=== PATIENT | male | born 1980 | race Caucasian/White ===

== ENCOUNTER 2016-04-29 17:34 | Inpatient (IN) | payer OTHER ==
[~2016-04-29] VITALS: Ht 180.3 cm; Wt 127.4 kg
[~2016-04-29 17:34] MED LIST: ASPI81TA3 PO; BENA20TA48 PO; CARV25TA79 PO; FURO40TA4 PO; OMEG-135 PO; SPIR25TA PO
--- NOTE | 2016-04-29 22:14 | ERA ---
ER Documentation Chief Complaint Date/Time DATE: 04/29/16 TIME: 22:13 Chief Complaint Shortness of breath HPI The patient is a 36-year-old male, presenting to the ER because of acute shortness of breath, bilateral lower extremity swelling, left-sided chest pain, 10/10, nonradiating, no aggravating or relieving factor that began this morning. He denies chest pain with exertion or vomiting or palpitation. He denies abdominal pain, vomiting, dysuria, diarrhea, constipation. He denies smoking, drinks socially, denies illicit drug Past medical history: Hypertension, pulmonary hypertension, history of CHF, cardiomyopathy with low EF of 30%, dyslipidemia Past surgical history: Left knee arthroscopy ROS All systems reviewed and are negative except as per history of present illness. Medications Home Meds Active Scripts Furosemide* (Furosemide*) 40 Mg Tablet, 40 MG PO BID for 30 Days, TAB Prov:LISA STONE NP 08/19/14 Spironolactone* (Aldactone*) 25 Mg Tab, 25 MG PO DAILY, #30 Prov:LISA STONE NP 08/19/14 Reported Medications Nitroglycerin* (Nitrostat*) 0.4 Mg Tab.subl, 0.4 MG SL Q5MIN Y for CHEST PAIN, BOTTLE 04/29/16 Benazepril Hcl* (Benazepril Hcl*) 10 Mg Tablet, 10 MG PO DAILY, #30 TAB 04/29/16 Carvedilol* (Carvedilol*) 25 Mg Tablet, 25 MG PO BID, TAB 08/17/14 Discontinued Reported Medications Benazepril Hcl* (Benazepril Hcl*) 20 Mg Tablet, 20 MG PO DAILY, TAB 08/17/14 Discontinued Scripts Fish Oil* (Fish Oil*) 1,000 Mg Cap, 1000 MG PO BID for 30 Days, CAP Prov:LISA STONE NP 08/19/14 Aspirin (Aspirin) 81 Mg Chew, 81 MG PO DAILY for 30 Days Prov:LISA STONE NP 08/19/14 Allergies Allergies: Coded Allergies: No Known Allergy (Unverified , 04/29/16) PMhx/Soc History of Surgery: Yes (KNEE SX ) Anesthesia Reaction: No Hx Neurological Disorder: No Hx Respiratory Disorders: Yes (PULMONARY HTN) Hx Cardiac Disorders: Yes (HTN; CHF) Hx Psychiatric Problems: No Hx Miscellaneous Medical Probl: No Hx Alcohol Use: Yes (OCCASIONALLY) Hx Substance Use: No (FORMER USE OF METH) Physical Exam Vitals Vital Signs Date Time Temp Pulse Resp B/P Pulse Ox O2 Delivery O2 Flow Rate FiO2 04/30/16 02:07 99.1 73 18 112/63 Nasal Cannula 2.0 04/30/16 00:00 73 18 140/61 Nasal Cannula 2.0 04/29/16 23:12 Nasal Cannula 2 04/29/16 23:00 75 20 116/51 Nasal Cannula 2.0 04/29/16 22:10 98.3 83 20 141/77 Nasal Cannula 2.0 04/29/16 17:38 100.3 88 18 113/70 99 Physical Exam Const: No acute distress. Head: Atraumatic. Eyes: Normal Conjunctiva. ENT: Normal External Ears, Nose and Mouth. Neck: Full range of motion. No meningismus. Resp: Bibasilar crackles Cardio: Regular rate and rhythm, no murmurs. Abd: Soft, non distended, normal bowel sounds, non tender. Skin: No petechiae or rashes. Back: No midline or flank tenderness. Ext: Mild bilateral leg edema, bilateral calf tenderness Neur: Awake and alert. No focal deficit Psych: Normal Mood and Affect. Result Diagram: 04/29/16222904/29/16 2318 Results 24 hrs Laboratory Tests Test 04/29/16 22:30 04/29/16 23:00 04/29/16 23:18 04/29/16 23:25 White Blood Count 17.710^3/ul Red Blood Count 4.8410^6/ul Hemoglobin 14.9g/dl Hematocrit 44.4% Mean Corpuscular Volume 91.7fl Mean Corpuscular Hemoglobin 30.8pg Mean Corpuscular Hemoglobin Concent 33.6g/dl Red Cell Distribution Width 13.5% Platelet Count 54155^3/UL Mean Platelet Volume 12.0fl Neutrophils % 78.5% Lymphocytes % 11.5% Monocytes % 8.1% Eosinophils % 0.6% Basophils % 0.5% Nucleated Red Blood Cells % 0.0/100WBC Neutrophils # 13.910^3/ul Lymphocytes # 2.010^3/ul Monocytes # 1.410^3/ul Eosinophils # 0.110^3/ul Basophils # 0.110^3/ul Nucleated Red Blood Cells # 0.010^3/ul Prothrombin Time 12.8Sec Prothrombin Time Ratio 1.0 INR International Normalized Ratio 0.96 Activated Partial Thromboplast Time 28.1Sec Urine Color LT. YELLOW Urine Clarity CLEAR Urine pH 5.5 Urine Specific [place] 1.020 Urine Ketones NEGATIVE Urine Nitrite NEGATIVE Urine Bilirubin NEGATIVE Urine Urobilinogen 0.2 E.U./dL Urine Leukocyte Esterase NEGATIVE Urine Microscopic RBC 0-2/HPF Urine Microscopic WBC NONE SEEN/HPF Urine Squamous Epithelial Cells RARE Urine Hemoglobin TRACE Urine Glucose NEGATIVE% Urine Total Protein NEGATIVE Sodium Level 137mmol/L Potassium Level 3.8mmol/L Chloride Level 98mmol/L Carbon Dioxide Level 27mmol/L Anion Gap 16 Blood Urea Nitrogen 23mg/dl Creatinine 1.49mg/dl Glucose Level 138mg/dl Lactic Acid Level 1.9mmol/L Calcium Level 9.3mg/dl Total Bilirubin 0.3mg/dl Direct Bilirubin 0.00mg/dl Indirect Bilirubin 0.3mg/dl Aspartate Amino Transf (AST/SGOT) 14IU/L Alanine Aminotransferase (ALT/SGPT) 19IU/L Alkaline Phosphatase 80IU/L Troponin I 0.012ng/ml B-Type Natriuretic Peptide 337PG/ML Total Protein 8.1g/dl Albumin 4.1g/dl Globulin 4.00g/dl Albumin/Globulin Ratio 1.02 Lipase 56U/L Ethyl Alcohol Level < 10.0mg/dl Urine Opiates Screen Negative Urine Barbiturates Negative Urine Amphetamines Screen Negative Urine Benzodiazepines Screen Negative Urine Cocaine Screen Negative Urine Cannabinoids Negative Current Medications Medications (Trade) Dose Ordered Sig/Daphney Route PRN Reason Start Time Stop Time Status Last Admin Dose Admin Aspirin (Aspirin) 325 mg ONCE ONCE PO 04/29/16 23:00 04/29/16 23:01 DC 04/29/16 22:49 Nitroglycerin (Nitroglycerin 2% Oint) 1 inch ONCE ONCE TD 04/29/16 23:00 04/29/16 23:01 DC 04/29/16 22:50 Morphine Sulfate (morphine) 2 mg ONCE ONCE IV 04/30/16 00:56 04/30/16 00:57 DC 04/30/16 01:30 Ondansetron HCl (Zofran Inj) 4 mg ONCE ONCE IV 04/30/16 00:56 04/30/16 00:57 DC Procedures/MDM [place] [id number] Radiology Main Line: [phone] DIAGNOSTIC IMAGING REPORT Patient: STACIE ARMSTRONG : 1980 Age: 36 Sex: M MR #: [id number] DOS: 04/29/16 2220 Ordering MD: SYDNEY BECKWITH MD Location: E/R Room/Bed: PROCEDURE: XR Chest. CLINICAL INDICATION: Possible sepsis. TECHNIQUE: Single frontal view of the chest was obtained COMPARISON: 12/20/2015. FINDINGS: Cardiomegaly and pulmonary vascular ingestion with mild patchy air space disease. No definite dense pneumonia. There is no pleural effusion or pneumothorax. IMPRESSION: Cardiomegaly and mild failure. RPTAT: UU Physician Anali Date Time Electronically viewed and signed by Physician Anali on 04/29/2016 23:10 RS/ CC: SYDNEY BECKWITH MD [place] [id number] Radiology Main Line: [phone] DIAGNOSTIC IMAGING REPORT Patient: STACIE ARMSTRONG : 1980 Age: 36 Sex: M MR #: [id number] DOS: 04/30/16 0029 Ordering MD: SYDNEY BECKWITH MD Location: E/R Room/Bed: PROCEDURE: Ultrasound examination of bilateral lower extremities veins with Doppler. CLINICAL INDICATION: Leg pain and swelling. TECHNIQUE: Multiple sonographic images of bilateral lower extremity venous systems were performed with molina scale and color Doppler. COMPARISON: 12/20/2015. FINDINGS: Bilateral common femoral, superficial femoral and popliteal veins demonstrate normal color flow, waveforms, compression and response to augmentation. There is no evidence of deep venous thrombosis. There is a cystic structure within the left popliteal fossa measuring 2.2 x 1.5 cm. IMPRESSION: No evidence of deep venous thrombosis within bilateral lower extremities. Left sided De Leon's cyst. .Javier Khan MD, Date Time Electronically viewed and signed by .Javier Khan MD, on 04/30/2016 01:34 .T/ CC: SYDNEY BECKWITH MD EKG: Read by emergency physician Rate/Rhythm: Normal Sinus Rhythm 80 beats/min QRS, ST, T-waves: No ST elevation, inferior, anterior, lateral ST and T abnormality Impression: Abnormal EKG MEDICAL MAKING DECISION: The patient is a 36-year-old male with multiple cardiac risk factors, presenting with acute chest pain that is concerning for ACS, acute CHF, acute leukocytosis of unclear etiology. He was treated with aspirin 325 mg p.o., 1 inch of nitroglycerin ointment to the chest wall, morphine 2 mg IV for pain, Zofran 4 mg IV for nausea with good response. The differential diagnoses for acute chest pain considered include but are not limited to acute coronary syndrome, acute myocardial infarction, pericarditis, pulmonary embolism, aortic dissection, pneumonia, pleural effusion, pneumothorax , GERD, chest wall pain. The differential diagnoses for acute dyspnea considered include but are not limited to asthma, COPD, pneumonia, pulmonary embolus, pleural effusion, congestive heart failure. Critical Care: Time: 35 minutes excluding all billable procedures. Treatments/Evaluations: Close monitoring and treatment of unstable vital signs, cardiorespiratory, and neurologic status, while maintaining tight balance of fluid, respiratory, and cardiac interventions. Departure Diagnosis: Primary Impression: Chest pain Additional Impressions: CHF (congestive heart failure) Leukocytosis Condition: Stable Comments I discussed the findings with the patient. I discussed the patient with the on- call hospitalist Dr. Bah who was made aware of the lab, the treatment, the patient condition. The patient is admitted to telemetry at 12:30 AM SYDNEY BECKWITH MD Apr 29, 2016 22:14
[2016-04-29] MEDS ORDERED: BENA10TA48 PO (22:32)
[2016-04-29] MEDS ORDERED: NIT4 SL (22:32)
[2016-04-29] MEDS ORDERED: ASPIRIN 325 MG TAB PO ONE (23:00)
[2016-04-29] MEDS ORDERED: NITROGLYCERIN 2% 1 GM OINT PKT TD ONE (23:00)
--- NOTE | 2016-04-29 23:10 | RADRPT ---
PROCEDURE: XR Chest. CLINICAL INDICATION: Possible sepsis. TECHNIQUE: Single frontal view of the chest was obtained COMPARISON: 12/20/2015. FINDINGS: Cardiomegaly and pulmonary vascular ingestion with mild patchy air space disease. No definite dense pneumonia. There is no pleural effusion or pneumothorax. IMPRESSION: Cardiomegaly and mild failure. RPTAT: UU Physician Anali Date Time Electronically viewed and signed by Physician Anali on 04/29/2016 23:10 RS/
[2016-04-29 23:19] LABS: ADD SCAN DIFF NO; BASOPHIL # 0.1 10^3/ul (0.0-0.1); BASOPHILS % 0.5 % (0.0-2.0); EOSINOPHILS # 0.1 10^3/ul (0.0-0.5); EOSINOPHILS % 0.6 % (0.0-7.0); HEMATOCRIT 44.4 % (42.0-52.0); HEMOGLOBIN 14.9 g/dl (14.0-18.0); LYMPHOCYTES % 11.5 % (15.0-51.0); MEAN CORPUSCULAR HEMOGLOBIN 30.8 pg (29.0-33.0); MEAN CORPUSCULAR HGB CONC 33.6 g/dl (32.0-37.0); MEAN CORPUSCULAR VOLUME 91.7 fl (82.0-101.0); MONOCYTE # 1.4 10^3/ul (0.3-0.9); MONOCYTES % 8.1 % (0.0-11.0); NEUTROPHIL # 13.9 10^3/ul (1.6-7.5); NEUTROPHILS % 78.5 % (39.0-77.0); PLATELET COUNT 218 10^3/UL (140-415); RED BLOOD COUNT 4.84 10^6/ul (4.70-6.10); RED CELL DISTRIBUTION WIDTH 13.5 % (11.5-14.5); WHITE BLOOD COUNT 17.7 10^3/ul (4.8-10.8)
[2016-04-29 23:34] LABS: INR 0.96; PROTIME 12.8 Sec (12.2-14.2)
[2016-04-29 23:35] LABS: PARTIAL THROMBOPLASTIN TIME 28.1 Sec (25.0-35.0)
[2016-04-29 23:51] LABS: ALBUMIN 4.1 g/dl (3.3-4.9)
[2016-04-29 23:52] LABS: CHLORIDE 98 mmol/L (97-110); POTASSIUM 3.8 mmol/L (3.5-5.1); SODIUM 137 mmol/L (135-144)
[2016-04-29 23:54] LABS: ADD UMIC YES; URINE BILIRUBIN (Dip) NEGATIVE (NEGATIVE); URINE BLOOD (Dip) TRACE (NEGATIVE); URINE COLOR LT. YELLOW (YELLOW); URINE GLUCOSE (Dip) NEGATIVE (NEGATIVE); URINE KETONES (Dip) NEGATIVE (NEGATIVE); URINE LEUKOCYTE ESTERASE (Dip) NEGATIVE (NEGATIVE); URINE NITRITE (Dip) NEGATIVE (NEGATIVE); URINE TOTAL PROTEIN (Dip) NEGATIVE (NEGATIVE); URINE UROBILINOGEN (Dip) 0.2 E.U./dL (0.1-1.0)
[2016-04-29 23:54] LABS: BILIRUBIN,INDIRECT 0.3 mg/dl (0-1.1); BILIRUBIN,TOTAL 0.3 mg/dl (0.2-1.3); CREATININE 1.49 mg/dl (0.61-1.24)
[2016-04-29 23:55] LABS: ALANINE AMINOTRANSFERASE 19 IU/L (13-69); ALBUMIN/GLOBULIN RATIO 1.02; ALKALINE PHOSPHATASE 80 IU/L (42-121); ANION GAP 16 (8-16); ASPARTATE AMINO TRANSFERASE 14 IU/L (15-46); BLOOD UREA NITROGEN 23 mg/dl (7-20); CALCIUM 9.3 mg/dl (8.4-10.2); CARBON DIOXIDE 27 mmol/L (21-31); GLUCOSE 138 mg/dl (70-220); TOTAL PROTEIN 8.1 g/dl (6.1-8.1)
[2016-04-29 23:56] LABS: ETHANOL < 10.0 mg/dl
[2016-04-30] VITALS (12 sets, daily range): BP systolic 109–133; BP diastolic 60–81; PULSE 69–88; RESP 18–20; TEMP 99.1; Ht 180.3 cm; Wt 127.4 kg
[2016-04-30 00:04] LABS: B-TYPE NATRIURETIC PEPTIDE 337 PG/ML (0-125)
[2016-04-30 00:07] LABS: TROPONIN-I 0.012 ng/ml (0.00-0.12)
[2016-04-30 00:10] LABS: BARBITURATES Negative (NEGATIVE); BENZODIAZEPINES Negative (NEGATIVE); CANNABINOIDS Negative (NEGATIVE); COCAINE Negative (NEGATIVE); OPIATES Negative (NEGATIVE)
[2016-04-30 00:18] LABS: SQUAMOUS EPITHELIAL CELL,UR RARE; URINE RBCS 0-2 /HPF (0)
[2016-04-30] MEDS ORDERED: morphine 2 MG INJ IV ONE (00:56)
[2016-04-30] MEDS ORDERED: ONDANSETRON 4 MG INJ IV ONE (00:56)
--- NOTE | 2016-04-30 01:26 | HP ---
Date/Time of Note Date/Time of Note DATE: 04/30/16 TIME: Assessment/Plan VTE Prophylaxis VTE Prophylaxis Intervention: other (Lovenox) Assessment/Plan Assessment/Plan 1) CHF, with Diastolic Dysfunction, Acute on Chronic - Admit to Telemetry - R/O for Cardiac Event with Serial Enzymes and EKG in AM - Diuresis - Consider Cardio Consult. - Pain and Anxiety medications prn - Resume Home Medications 2) Foot Pain, Bilateral, Chronic on Left, Acute on Right, No Injury. No DVTs per Venous Ultrasound done in the ED. Consider subacute infection - X-Ray Bilateral Feet 3) Chest Wall Pain, Right, chronic, possibly exacerbated due to coughin - Reassurance that his rib is not still broken from 2007 HPI/ROS Admit Date/Time Admit Date/Time 04/30/16 0034 Hx of Present Illness Chief Complaint Shortness of breath HPI Although patient presented with shortness of breath, his jim concerns when I see him are pain in the right side of his ribs and pain in his feet which he indicates is worse than the pain inhis ribs. He feels the rib pain has been there since he broke his ribs in 2007. He has had pain in his left leg and foot since November 2015, and now, his right leg and foot hurt, too. He complains that the pain is more in the top of his feet and he has some numbness over his toes. He denies having diabetes. As far as his shortness of breath, he states that feels better since getting treatment in the emergency room. Chart review shows that he had an Echocardiogram on 08/18/14, and, among other things, it showed an ejection fraction of 20%. ROS General: Admits: Denies: Fever, Chills, Poor Appetite, Abnormal Weight Loss, Generalized Body Aches Eyes: Admits: Denies: Blurry Vision, Double Vision HENT: Admits: Denies: Ear Pain/Pressure, Runny/Stuffy Nose, Sore Throat Cardiovascular: Admits: Chest Pain, Leg Swelling Denies: Palpitations Pulmonary: Admits: Occasional Cough, Shortness of Breath Denies: Wheeze Gastrointestinal: Admits: Denies: Abdominal Pain, Nausea, Vomiting, Diarrhea, Blood in Stool, Black-Colored Stool Urogenital: Admits: Denies: Burning with Urination, Urinary Frequency, Blood in Urine Musculoskeletal: Admits: Rib Pain, Right side of ribs, site of previous fracture in 2007 Denies: Joint Pain, Joint Swelling, Muscle Pain Neurological: Admits: Numbness, Tingling in his toes, left foot worse than right Denies: Headache, Dizziness, Shooting Pains Integumentary: Admits: Denies: Rash, Itch Endocrine: Admits: Denies: Excessive Thirst, Excessive Hunger, Intolerant to Cold , Intolerant to Heat PMH/Family/Social Past Medical History Hypertension, pulmonary hypertension, history of CHF, cardiomyopathy with low EF of 20% from Echocardiogram on 08/18/14, dyslipidemia Past Surgical History Left Knee Arthroscopy Family History Significant Family History: diabetes Social History Alcohol Use: occasionally (6 pack) Smoking Status: Unknown if ever smoked Drug Use: other (Methamphetamine - last use 2 years ago (3 negative UDS since 2014 in EHR)) Exam/Review of Systems Vital Signs Vitals Vital Signs Date Time Temp Pulse Resp B/P Pulse Ox O2 Delivery O2 Flow Rate FiO2 04/29/16 23:12 Nasal Cannula 2 04/29/16 22:10 98.3 83 20 141/77 04/29/16 17:38 99 Exam Exam General: Obese male, alert and oriented in mild distress, concerned about the pain in the right side of his chest and the pain in his feet. Eyes: Sclera White, EOMI HENT: Normocephalic/Atraumatic, External Ears/Nose Normal, Moist Mucus Membranes Neck: Supple, Trachea Midline Cardiovascular: Normal Rate, Normal Rhythm, Normal S1 and S2, No Murmur, No Extra Sounds. Radial Pulse and Dorsalis Pedis Pulse +2/4 and equal bilaterally.Bilateral pedal edema, Trace to +1. Kuldeep's Sign: NEGATIVE. ( Patient experiences falin in his feet when they are flexed, but not when his calf is squeezed in that position, and his calves are soft and non-tender. Feet are warm. Pulmonary: Decreased airflow and coarse thonchi throughout, Normal Respiratory Effort Gastrointestinal: Normoactive Bowel Sounds, Soft, Non-Tender/Non-Distended, No Hepatosplenomegaly Appreciated, No Pulsatile Masses Urogenital: Deferred Musculoskeletal: Normal Muscle Bulk and Tone. No specific tenderness along right ribs in the anterior and anterolateral positions, where patient shows me his pain is (from a broken rib in 2007) when he is distracted, telling me abut his painful feet. Neurological: CN II - XII Grossly Intact, Non-Focal, Speech Normal Integumentary: Normal Moisture and Temperature, Good Turgor, No Jaundice, No Rash. Plantar surface of feet with rough, thickened skin. (Patient admits that he walks a lot without shoes.) No obvious sores/portals of entry, but feet are warm, swollen and extremely tender. Cannot rule out diffuse erythema. Lymphatic: No Cervical Lymphadenopathy Psychiatric: Appropriate Mood and Affect, Good Eye Contact Labs Result Diagram: 04/29/160 04/29/16 2318 Medications Medications Home Meds Active Scripts Furosemide* (Furosemide*) 40 Mg Tablet, 40 MG PO BID for 30 Days, TAB Prov:LISA STONE [employer] 08/19/14 Spironolactone* (Aldactone*) 25 Mg Tab, 25 MG PO DAILY, #30 Prov:LISA STONE NP 08/19/14 Reported Medications Nitroglycerin* (Nitrostat*) 0.4 Mg Tab.subl, 0.4 MG SL Q5MIN Y for CHEST PAIN, BOTTLE 04/29/16 Benazepril Hcl* (Benazepril Hcl*) 10 Mg Tablet, 10 MG PO DAILY, #30 TAB 04/29/16 Carvedilol* (Carvedilol*) 25 Mg Tablet, 25 MG PO BID, TAB 08/17/14 Discontinued Reported Medications Benazepril Hcl* (Benazepril Hcl*) 20 Mg Tablet, 20 MG PO DAILY, TAB 08/17/14 Discontinued Scripts Fish Oil* (Fish Oil*) 1,000 Mg Cap, 1000 MG PO BID for 30 Days, CAP Prov:LISA STONE NP 08/19/14 Aspirin (Aspirin) 81 Mg Chew, 81 MG PO DAILY for 30 Days Prov:LISA STONE NP 08/19/14 Procedures Procedures Laboratory Tests Test 04/29/16 22:30 04/29/16 23:00 04/29/16 23:18 04/29/16 23:25 White Blood Count 17.710^3/ul Red Blood Count 4.8410^6/ul Hemoglobin 14.9g/dl Hematocrit 44.4% Mean Corpuscular Volume 91.7fl Mean Corpuscular Hemoglobin 30.8pg Mean Corpuscular Hemoglobin Concent 33.6g/dl Red Cell Distribution Width 13.5% Platelet Count 68758^3/UL Mean Platelet Volume 12.0fl Neutrophils % 78.5% Lymphocytes % 11.5% Monocytes % 8.1% Eosinophils % 0.6% Basophils % 0.5% Nucleated Red Blood Cells % 0.0/100WBC Neutrophils # 13.910^3/ul Lymphocytes # 2.010^3/ul Monocytes # 1.410^3/ul Eosinophils # 0.110^3/ul Basophils # 0.110^3/ul Nucleated Red Blood Cells # 0.010^3/ul Prothrombin Time 12.8Sec Prothrombin Time Ratio 1.0 INR International Normalized Ratio 0.96 Activated Partial Thromboplast Time 28.1Sec Urine Color LT. YELLOW Urine Clarity CLEAR Urine pH 5.5 Urine Specific [place] 1.020 Urine Ketones NEGATIVE Urine Nitrite NEGATIVE Urine Bilirubin NEGATIVE Urine Urobilinogen 0.2 E.U./dL Urine Leukocyte Esterase NEGATIVE Urine Microscopic RBC 0-2/HPF Urine Microscopic WBC NONE SEEN/HPF Urine Squamous Epithelial Cells RARE Urine Hemoglobin TRACE Urine Glucose NEGATIVE% Urine Total Protein NEGATIVE Sodium Level 137mmol/L Potassium Level 3.8mmol/L Chloride Level 98mmol/L Carbon Dioxide Level 27mmol/L Anion Gap 16 Blood Urea Nitrogen 23mg/dl Creatinine 1.49mg/dl Glucose Level 138mg/dl Lactic Acid Level 1.9mmol/L Calcium Level 9.3mg/dl Total Bilirubin 0.3mg/dl Direct Bilirubin 0.00mg/dl Indirect Bilirubin 0.3mg/dl Aspartate Amino Transf (AST/SGOT) 14IU/L Alanine Aminotransferase (ALT/SGPT) 19IU/L Alkaline Phosphatase 80IU/L Troponin I 0.012ng/ml B-Type Natriuretic Peptide 337PG/ML Total Protein 8.1g/dl Albumin 4.1g/dl Globulin 4.00g/dl Albumin/Globulin Ratio 1.02 Lipase 56U/L Ethyl Alcohol Level < 10.0mg/dl Urine Opiates Screen Negative Urine Barbiturates Negative Urine Amphetamines Screen Negative Urine Benzodiazepines Screen Negative Urine Cocaine Screen Negative Urine Cannabinoids Negative RADIOLOGY: PROCEDURE: Ultrasound examination of bilateral lower extremities veins with Doppler. CLINICAL INDICATION: Leg pain and swelling. TECHNIQUE: Multiple sonographic images of bilateral lower extremity venous systems were performed with molina scale and color Doppler. COMPARISON: 12/20/2015. FINDINGS: Bilateral common femoral, superficial femoral and popliteal veins demonstrate normal color flow, waveforms, compression and response to augmentation. There is no evidence of deep venous thrombosis. There is a cystic structure within the left popliteal fossa measuring 2.2 x 1.5 cm. IMPRESSION: No evidence of deep venous thrombosis within bilateral lower extremities. Left sided De Leon's cyst. PROCEDURE: XR Chest. CLINICAL INDICATION: Possible sepsis. TECHNIQUE: Single frontal view of the chest was obtained COMPARISON: 12/20/2015. FINDINGS: Cardiomegaly and pulmonary vascular ingestion with mild patchy air space disease. No definite dense pneumonia. There is no pleural effusion or pneumothorax. IMPRESSION: Cardiomegaly and mild failure. IGOR CHANDLER DO Apr 30, 2016 01:26
--- NOTE | 2016-04-30 01:34 | RADRPT ---
PROCEDURE: Ultrasound examination of bilateral lower extremities veins with Doppler. CLINICAL INDICATION: Leg pain and swelling. TECHNIQUE: Multiple sonographic images of bilateral lower extremity venous systems were performed with molina scale and color Doppler. COMPARISON: 12/20/2015. FINDINGS: Bilateral common femoral, superficial femoral and popliteal veins demonstrate normal color flow, wav eforms, compression and response to augmentation. There is no evidence of deep venous thrombosis. T here is a cystic structure within the left popliteal fossa measuring 2.2 x 1.5 cm. IMPRESSION: No evidence of deep venous thrombosis within bilateral lower extremities. Left sided De Leon's cyst. .Javier Khan MD, MD Date Time Electronically viewed and signed by .Javier Khan MD, on 04/30/2016 01:34 .T/
[2016-04-30] MEDS ORDERED: NACL 0.9% 3 ML SYG IV SCH (03:00)
[2016-04-30] MEDS ORDERED: METOCLOPRAMIDE 10 MG INJ IV PRN (03:00)
[2016-04-30] MEDS ORDERED: LORAZEPAM 0.5 MG TAB PO PRN (03:00)
[2016-04-30] MEDS ORDERED: NITROGLYCERIN (SL) 0.4 MG TAB SL PRN (03:00)
[2016-04-30] MEDS ORDERED: ACETAMINOPHEN 325 MG TAB PO PRN (03:00)
[2016-04-30] MEDS ORDERED: OXYCODONE/ACETAMINOPHEN (5/325) TAB PO PRN (03:00)
[2016-04-30] MEDS ORDERED: FUROSEMIDE 40 MG INJ IV ONE (03:30)
[2016-04-30] MEDS: OXYCODONE/ACETAMINOPHEN (5/325) TAB PO PRN ×4 (03:48→22:33)
[2016-04-30 04:03] LABS: ADD SCAN DIFF NO
[2016-04-30 04:07] LABS: BASOPHIL # 0.1 10^3/ul (0.0-0.1); BASOPHILS % 0.4 % (0.0-2.0); EOSINOPHILS # 0.1 10^3/ul (0.0-0.5); EOSINOPHILS % 0.4 % (0.0-7.0); HEMATOCRIT 41.7 % (42.0-52.0); HEMOGLOBIN 13.9 g/dl (14.0-18.0); LYMPHOCYTES # 2.4 10^3/ul (0.8-2.9); MEAN CORPUSCULAR HEMOGLOBIN 30.7 pg (29.0-33.0); MEAN CORPUSCULAR HGB CONC 33.3 g/dl (32.0-37.0); MEAN CORPUSCULAR VOLUME 92.1 fl (82.0-101.0); MEAN PLATELET VOLUME 11.9 fl (7.4-10.4); MONOCYTE # 1.4 10^3/ul (0.3-0.9); MONOCYTES % 7.7 % (0.0-11.0); NEUTROPHIL # 14.1 10^3/ul (1.6-7.5); NEUTROPHILS % 77.7 % (39.0-77.0); PLATELET COUNT 206 10^3/UL (140-415); RED BLOOD COUNT 4.53 10^6/ul (4.70-6.10); RED CELL DISTRIBUTION WIDTH 13.5 % (11.5-14.5); TROPONIN-I 0.015 ng/ml (0.00-0.12); WHITE BLOOD COUNT 18.1 10^3/ul (4.8-10.8)
[2016-04-30 04:12] LABS: POTASSIUM 4.1 mmol/L (3.5-5.1)
[2016-04-30 04:14] LABS: CREATININE 1.42 mg/dl (0.61-1.24)
[2016-04-30 04:15] LABS: CALCIUM 8.7 mg/dl (8.4-10.2); MAGNESIUM 2.1 mg/dl (1.7-2.5)
[2016-04-30 04:37] LABS: CK-MB 0.67 ng/ml (0.0-2.4)
[2016-04-30] MEDS: BENAZEPRIL 10 MG TAB PO SCH (09:00)
[2016-04-30] MEDS: SPIRONOLACTONE 25 MG TAB PO SCH (09:48)
[2016-04-30] MEDS: ENOXAPARIN 40 MG/0.4 ML SYG SC SCH (09:51)
[2016-04-30 11:16] LABS: CREATINE KINASE 89 IU/L (23-200)
[2016-04-30 11:26] LABS: CK-MB 0.76 ng/ml (0.0-2.4)
[2016-04-30 11:32] LABS: TROPONIN-I < 0.012 ng/ml (0.00-0.12)
--- NOTE | 2016-04-30 13:12 | RADRPT ---
PROCEDURE: XR Foot Bilateral. CLINICAL INDICATION: Edema and swelling of both feet with foot pain. No history of trauma. TECHNIQUE: AP, lateral and oblique views of the bilateral feet were obtained. The images were rev iewed on a PACS workstation. COMPARISON: No. FINDINGS: Right foot: The bones of the foot appear intact, with no evidence of fracture, dislocation, or subluxation. The joint spaces are preserved. Bone mineralization is normal. There is mild soft tissue swelling. Left foot: The bones of the foot appear intact, with no evidence of fracture, dislocation, or subluxation. The joint spaces are preserved. Bone mineralization is normal. There is mild soft tissue swelling. IMPRESSION: 1. There is mild soft tissue swelling of both feet. RPTAT:AAJJ Physician Saulo Date Time Electronically viewed and signed by Physician Saulo on 04/30/2016 13:12 JOANN/
--- NOTE | 2016-04-30 13:26 | PN ---
Date/Time of Note Date/Time of Note DATE: 04/30/16 TIME: 13:24 Assessment/Plan VTE Prophylaxis VTE Prophylaxis Intervention: LMWH Lines/Catheters IV Catheter Type (from [facility]): Saline Lock Assessment/Plan Chief Complaint/Hosp Course Subjective: Dyspnea remains. Recent viral illness with cough sore throat etc. Ongoing salt nonadherence. Denies any heavy alcohol use. Adherent to his medication. Homeless fci. Leg pain and edema remains Objective: Vital signs stable no arrhythmia Physical examination No pallor/JVD adenopathy. No thrush. Regular no murmur rub gallop Diminished breath sounds bilaterally pneumatic Bowel sounds positive, nontender, nondistended, no rigidity no rebound or guarding. Positive overweight/obese Extremities 1+ edema Assessment and plan 1. Acute on chronic decompensated CHF/nonischemic cardiomyopathy. Stable diuretics. Consider dig/spironolactone 2. Hypertension with salt nonadherence 3. Obesity disorder. Consider JENN 4. Secondary pulmonary hypertension. Prognosis concerning 5. Past meth use 6. Prediabetes/metabolic syndrome 7. Dyslipidemia 8. Recent respiratory viral illness Problems: Exam/Review of Systems Vital Signs Vitals Vital Signs Date Time Temp Pulse Resp B/P Pulse Ox O2 Delivery O2 Flow Rate FiO2 04/30/16 12:00 76 04/30/16 08:37 98.0 18 112/60 98 04/30/16 08:00 Nasal Cannula 2.0 Intake and Output 04/29/16 04/29/16 04/30/16 15:00 23:00 07:00 Intake Total 550 ml Output Total 575 ml Balance -25 ml Results Result Diagram: 04/30/168 04/30/16 0318 Results 24 hrs Laboratory Tests Test 04/29/16 22:30 04/29/16 23:00 04/29/16 23:18 04/29/16 23:25 White Blood Count 17.7 #H Red Blood Count 4.84 Hemoglobin 14.9 Hematocrit 44.4 Mean Corpuscular Volume 91.7 Mean Corpuscular Hemoglobin 30.8 Mean Corpuscular Hemoglobin Concent 33.6 Red Cell Distribution Width 13.5 Platelet Count 218 Mean Platelet Volume 12.0 H Neutrophils % 78.5 H Lymphocytes % 11.5 L Monocytes % 8.1 Eosinophils % 0.6 Basophils % 0.5 Nucleated Red Blood Cells % 0.0 Neutrophils # 13.9 H Lymphocytes # 2.0 Monocytes # 1.4 H Eosinophils # 0.1 Basophils # 0.1 Nucleated Red Blood Cells # 0.0 Prothrombin Time 12.8 Prothrombin Time Ratio 1.0 INR International Normalized Ratio 0.96 Activated Partial Thromboplast Time 28.1 Urine Color LT. YELLOW Urine Clarity CLEAR Urine pH 5.5 Urine Specific Zanoni 1.020 Urine Ketones NEGATIVE Urine Nitrite NEGATIVE Urine Bilirubin NEGATIVE Urine Urobilinogen 0.2 E.U./dL Urine Leukocyte Esterase NEGATIVE Urine Microscopic RBC 0-2 Urine Microscopic WBC NONE SEEN Urine Squamous Epithelial Cells RARE Urine Hemoglobin TRACE Urine Glucose NEGATIVE Urine Total Protein NEGATIVE Sodium Level 137 Potassium Level 3.8 Chloride Level 98 Carbon Dioxide Level 27 Anion Gap 16 Blood Urea Nitrogen 23 H Creatinine 1.49 H Glucose Level 138 Lactic Acid Level 1.9 Calcium Level 9.3 Total Bilirubin 0.3 Direct Bilirubin 0.00 Indirect Bilirubin 0.3 Aspartate Amino Transf (AST/SGOT) 14 L Alanine Aminotransferase (ALT/SGPT) 19 Alkaline Phosphatase 80 Troponin I 0.012 B-Type Natriuretic Peptide 337 H Total Protein 8.1 Albumin 4.1 Globulin 4.00 H Albumin/Globulin Ratio 1.02 Lipase 56 Ethyl Alcohol Level < 10.0 Urine Opiates Screen Negative Urine Barbiturates Negative Urine Amphetamines Screen Negative Urine Benzodiazepines Screen Negative Urine Cocaine Screen Negative Urine Cannabinoids Negative Test 04/30/16 01:20 04/30/16 03:18 04/30/16 10:35 Lactic Acid Level 1.1 0.9 White Blood Count 18.1 H Red Blood Count 4.53 L Hemoglobin 13.9 L Hematocrit 41.7 L Mean Corpuscular Volume 92.1 Mean Corpuscular Hemoglobin 30.7 Mean Corpuscular Hemoglobin Concent 33.3 Red Cell Distribution Width 13.5 Platelet Count 206 Mean Platelet Volume 11.9 H Neutrophils % 77.7 H Lymphocytes % 13.0 L Monocytes % 7.7 Eosinophils % 0.4 Basophils % 0.4 Nucleated Red Blood Cells % 0.0 Neutrophils # 14.1 H Lymphocytes # 2.4 Monocytes # 1.4 H Eosinophils # 0.1 Basophils # 0.1 Nucleated Red Blood Cells # 0.0 Sodium Level 138 Potassium Level 4.1 Chloride Level 98 Carbon Dioxide Level 27 Anion Gap 17 H Blood Urea Nitrogen 23 H Creatinine 1.42 H Glucose Level 133 Calcium Level 8.7 Magnesium Level 2.1 Creatine Kinase 94 89 Creatine Kinase Index 0.7 0.9 Creatinine Kinase MB (Mass) 0.67 0.76 Troponin I 0.015 < 0.012 Medications Medications Current Medications Lorazepam (Ativan) 0.5 mg Q8H PRN PO ANXIETY; Start 04/30/16 at 03:00 Metoclopramide HCl (Reglan) 10 mg Q6H PRN IV NAUSEA AND/OR VOMITING; Start at 03:00 Acetaminophen (Tylenol Tab) 650 mg Q6H PRN PO PAIN LEVEL 1-3 OR FEVER; Start at 03:00 Oxycodone/ Acetaminophen (Percocet (5/ 325)) 1 tab Q6H PRN PO PAIN LEVEL 4-6; Start 04/30/16 at 03:00 Oxycodone/ Acetaminophen (Percocet (5/ 325)) 2 tab Q6H PRN PO PAIN LEVEL 7-10 Last administered on 04/30/16 09:51; Admin Dose 2 TAB; Start 04/30/16 at 03:00 Enoxaparin Sodium (Lovenox) 40 mg DAILY SC Last administered on 04/30/16 09:51 ; Admin Dose 40 MG; Start 04/30/16 at 09:00 Benazepril HCl (Lotensin) 10 mg DAILY PO ; Start 04/30/16 at 09:00 Carvedilol (Coreg) 25 mg BID PO Last administered on 04/30/16 09:49; Admin Dose 25 MG; Start 04/30/16 at 09:00 Nitroglycerin (Nitroglycerin (Sl Tab) 0.4 Mg) 1 tab PRN PRN SL CHEST PAIN; Start 04/30/16 at 03:00 Spironolactone (Aldactone) 25 mg DAILY PO Last administered on 04/30/16 09:48 ; Admin Dose 25 MG; Start 04/30/16 at 09:00 Influenza Virus Vaccine (Fluzone) 0.5 ml ONCE ONCE IM* ; Start 05/01/16 at 09:00 ; Stop 05/01/16 at 09:01 NIVIA HELMS MD Apr 30, 2016 13:26
[2016-04-30] MEDS ORDERED: ALBUTEROL HFA 8 GM INHALER INH PRN (13:30)
[2016-04-30] MEDS ORDERED: GUAIFENESIN/DM 5ML CUP PO PRN (13:30)
[2016-04-30] MEDS ORDERED: SENNA/DOCUSATE NA (8.6MG/50MG) TAB PO PRN (13:30)
[2016-04-30] MEDS: ASCORBIC ACID 500 MG TAB PO SCH ×2 (14:03→20:32)
[2016-04-30] MEDS: FUROSEMIDE 20 MG INJ IV SCH ×2 (14:03→20:33)
--- NOTE | 2016-04-30 22:39 | EN ---
Date/Time of Note Date/Time of Note DATE: 04/30/16 TIME: 22:33 Event Note Medicine Medicine Event Note BLOOD CULTURES POSITIVE Notified by RN that second BC is positive for Gram + Cocci in Chains. WBCs = 18.1 they were 17.7 on admit. He has been afebrile. Feet are still painful, but he gets some relief with pain medication, but they are too painful to walk on. Feet X-Rays were NEGATIVE except for soft tissue swelling. I re-evaluated patient's feet and they are very warm, swollen and with mild erythema. I believe they are the source of his infection, even though there is no obvious portal. I will start him on Rocephin 2 gm IV Q 24 hours for aggressive treatment and I recommend a Podiatry Consult. IGOR CHANDLER DO Apr 30, 2016 22:39
[2016-04-30] MEDS: CEFTRIAXONE 2 GM/50 ML (PMX) 50 ML IVPB SCH (23:58)
[2016-05-01] VITALS (14 sets, daily range): BP systolic 104–127; BP diastolic 55–78; PULSE 70–85; RESP 18–20
[2016-05-01 08:05] LABS: ADD SCAN DIFF NO
[2016-05-01 08:11] LABS: BASOPHIL # 0.1 10^3/ul (0.0-0.1); BASOPHILS % 0.5 % (0.0-2.0); EOSINOPHILS # 0.1 10^3/ul (0.0-0.5); EOSINOPHILS % 0.5 % (0.0-7.0); HEMATOCRIT 45.5 % (42.0-52.0); HEMOGLOBIN 15.1 g/dl (14.0-18.0); LYMPHOCYTES # 2.2 10^3/ul (0.8-2.9); LYMPHOCYTES % 12.4 % (15.0-51.0); MEAN CORPUSCULAR HEMOGLOBIN 30.4 pg (29.0-33.0); MEAN CORPUSCULAR HGB CONC 33.2 g/dl (32.0-37.0); MEAN CORPUSCULAR VOLUME 91.7 fl (82.0-101.0); MEAN PLATELET VOLUME 11.8 fl (7.4-10.4); MONOCYTE # 1.4 10^3/ul (0.3-0.9); MONOCYTES % 7.7 % (0.0-11.0); NEUTROPHILS % 78.2 % (39.0-77.0); PLATELET COUNT 214 10^3/UL (140-415); RED BLOOD COUNT 4.96 10^6/ul (4.70-6.10); RED CELL DISTRIBUTION WIDTH 13.4 % (11.5-14.5); WHITE BLOOD COUNT 17.9 10^3/ul (4.8-10.8)
[2016-05-01 08:30] LABS: CHLORIDE 92 mmol/L (97-110)
[2016-05-01 08:31] LABS: ALBUMIN 4.1 g/dl (3.3-4.9); SODIUM 135 mmol/L (135-144)
[2016-05-01 08:32] LABS: POTASSIUM 4.9 mmol/L (3.5-5.1)
[2016-05-01 08:34] LABS: ALANINE AMINOTRANSFERASE 22 IU/L (13-69); ALBUMIN/GLOBULIN RATIO 0.85; ALKALINE PHOSPHATASE 82 IU/L (42-121); ANION GAP 14 (8-16); ASPARTATE AMINO TRANSFERASE 20 IU/L (15-46); BILIRUBIN,INDIRECT 0.3 mg/dl (0-1.1); BILIRUBIN,TOTAL 0.3 mg/dl (0.2-1.3); BLOOD UREA NITROGEN 21 mg/dl (7-20); CARBON DIOXIDE 34 mmol/L (21-31); GLUCOSE 138 mg/dl (70-220); PHOSPHORUS 4.5 mg/dl (2.5-4.9); TOTAL PROTEIN 8.9 g/dl (6.1-8.1)
[2016-05-01 08:35] LABS: CALCIUM 9.5 mg/dl (8.4-10.2); MAGNESIUM 2.2 mg/dl (1.7-2.5)
[2016-05-01] MEDS ORDERED: INFLUENZA VIRUS VACCINE 0.5 ML (DISPENSING) IM* ONE (09:00)
[2016-05-01 09:18] LABS: TROPONIN-I < 0.012 ng/ml (0.00-0.12)
[2016-05-01] MEDS: SPIRONOLACTONE 25 MG TAB PO SCH (09:21)
[2016-05-01] MEDS: FUROSEMIDE 20 MG INJ IV SCH (09:21)
[2016-05-01] MEDS: BENAZEPRIL 10 MG TAB PO SCH (09:22)
[2016-05-01] MEDS: ASCORBIC ACID 500 MG TAB PO SCH ×2 (09:22→20:01)
[2016-05-01] MEDS: THIAMINE 100 MG TAB PO SCH (09:22)
[2016-05-01] MEDS: ENOXAPARIN 40 MG/0.4 ML SYG SC SCH (09:31)
[2016-05-01] MEDS: OXYCODONE/ACETAMINOPHEN (5/325) TAB PO PRN ×2 (09:35→20:02)
--- NOTE | 2016-05-01 12:31 | PN ---
Date/Time of Note Date/Time of Note DATE: 05/01/16 TIME: 12:27 Assessment/Plan VTE Prophylaxis VTE Prophylaxis Intervention: LMWH Lines/Catheters IV Catheter Type (from [facility]): Saline Lock Assessment/Plan Chief Complaint/Hosp Course Subjective: 04/30 dyspnea remains. Recent viral illness w cough sore throat etc. Ongoing salt nonadherence. Denies any heavy alcohol use. Adherent to his [employer]. Homeless retirement. Leg pain and edema remains. Objective: Vss; no arrhythmia PE No pallor/JVD adenopathy. No thrush. Reg no m/r/g ctab Bs +nt nd, no r/r/g. overweight/obese Ext 1+ edema, better. Some discoloration and heel tenderness. No warmth/doubt gout A/P 1. Ac/chr decompensated CHF/nonischemic cmy. Stable diuretics. Consider dig/ spironolactone 2. Hypertension with salt nonadherence 3. Obesity disorder. Consider JENN 4. Secondary pulmonary hypertension. Prognosis concerning 5. Past meth use 6. Prediabetes/metabolic syndrome 7. Dyslipidemia 8. Recent respiratory viral illness 9. Bilat foot/ankle pain. Rt>lt. Doubt gout. Consult podiatry. 10. Possible bacteremia. Probable contaminated specimen. Follow. Problems: Exam/Review of Systems Vital Signs Vitals Vital Signs Date Time Temp Pulse Resp B/P Pulse Ox O2 Delivery O2 Flow Rate FiO2 05/01/16 12:11 71 05/01/16 07:52 98.0 18 127/78 98 05/01/16 04:00 Room Air 04/30/16 08:00 2.0 Intake and Output 04/30/16 04/30/16 05/01/16 15:00 23:00 07:00 Intake Total 600 ml 350 ml Output Total 225 ml 1200 ml 1075 ml Balance -225 ml -600 ml -725 ml Results Result Diagram: 05/01/16 0710 05/01/16 0710 Results 24 hrs Laboratory Tests Test 05/01/16 07:10 White Blood Count 17.9 H Red Blood Count 4.96 Hemoglobin 15.1 Hematocrit 45.5 Mean Corpuscular Volume 91.7 Mean Corpuscular Hemoglobin 30.4 Mean Corpuscular Hemoglobin Concent 33.2 Red Cell Distribution Width 13.4 Platelet Count 214 Mean Platelet Volume 11.8 H Neutrophils % 78.2 H Lymphocytes % 12.4 L Monocytes % 7.7 Eosinophils % 0.5 Basophils % 0.5 Nucleated Red Blood Cells % 0.0 Neutrophils # 14.0 H Lymphocytes # 2.2 Monocytes # 1.4 H Eosinophils # 0.1 Basophils # 0.1 Nucleated Red Blood Cells # 0.0 Sodium Level 135 Potassium Level 4.9 Chloride Level 92 L Carbon Dioxide Level 34 H Anion Gap 14 Blood Urea Nitrogen 21 H Creatinine 1.20 Glucose Level 138 Hemoglobin A1c 5.7 Calcium Level 9.5 Phosphorus Level 4.5 Magnesium Level 2.2 Total Bilirubin 0.3 Direct Bilirubin 0.00 Indirect Bilirubin 0.3 Aspartate Amino Transf (AST/SGOT) 20 Alanine Aminotransferase (ALT/SGPT) 22 Alkaline Phosphatase 82 Troponin I < 0.012 Total Protein 8.9 H Albumin 4.1 Globulin 4.80 H Albumin/Globulin Ratio 0.85 Thyroid Stimulating Hormone (TSH) 10.100 H Medications Medications Current Medications Lorazepam (Ativan) 0.5 mg Q8H PRN PO ANXIETY; Start 04/30/16 at 03:00 Metoclopramide HCl (Reglan) 10 mg Q6H PRN IV NAUSEA AND/OR VOMITING Last administered on 04/30/16 18:20; Admin Dose 10 MG; Start 04/30/16 at 03:00 Acetaminophen (Tylenol Tab) 650 mg Q6H PRN PO PAIN LEVEL 1-3 OR FEVER; Start at 03:00 Oxycodone/ Acetaminophen (Percocet (5/ 325)) 1 tab Q6H PRN PO PAIN LEVEL 4-6; Start 04/30/16 at 03:00 Oxycodone/ Acetaminophen (Percocet (5/ 325)) 2 tab Q6H PRN PO PAIN LEVEL 7-10 Last administered on 05/01/16 09:35; Admin Dose 2 TAB; Start 04/30/16 at 03:00 Enoxaparin Sodium (Lovenox) 40 mg DAILY SC Last administered on 05/01/16 09:31 ; Admin Dose 40 MG; Start 04/30/16 at 09:00 Benazepril HCl (Lotensin) 10 mg DAILY PO Last administered on 05/01/16 09:22; Admin Dose 10 MG; Start 04/30/16 at 09:00 Carvedilol (Coreg) 25 mg BID PO Last administered on 05/01/16 09:22; Admin Dose 25 MG; Start 04/30/16 at 09:00 Nitroglycerin (Nitroglycerin (Sl Tab) 0.4 Mg) 1 tab PRN PRN SL CHEST PAIN; Start 04/30/16 at 03:00 Spironolactone (Aldactone) 25 mg DAILY PO Last administered on 05/01/16 09:21 ; Admin Dose 25 MG; Start 04/30/16 at 09:00 Senna/Docusate Sodium (Senokot-S) 2 tab HS PRN PO CONSTIPATION; Start 04/30/16 at 13:30 Ascorbic Acid (Vitamin C) 500 mg BID PO Last administered on 05/01/16 09:22; Admin Dose 500 MG; Start 04/30/16 at 13:30 Guaifenesin/ Dextromethorphan (Robitussin Dm Liquid Cup) 10 ml Q4H PRN PO COUGH Last administered on 04/30/16 14:02; Admin Dose 10 ML; Start 04/30/16 at 13:30 Furosemide (Lasix) 40 mg TID IV Last administered on 05/01/16 09:21; Admin Dose 40 MG; Start 04/30/16 at 13:30 Thiamine HCl 100 mg 100 mg DAILY PO Last administered on 05/01/16 09:22; Admin Dose 100 MG; Start 05/01/16 at 09:00 Ceftriaxone Sodium (Rocephin) 50 ml @ 100 mls/hr Q24H IVPB Last administered on 04/30/16 23:58; Admin Dose 100 MLS/HR; Start 04/30/16 at 23:00 NIVIA HELMS MD May 01, 2016 12:31
[2016-05-01] MEDS ORDERED: SOD CHLORIDE 0.9% 500 ML IV ONE (13:00)
[2016-05-01] MEDS ORDERED: SOD CHLORIDE 0.9% 250 ML IV ONE (18:00)
[2016-05-01] MEDS: CEFTRIAXONE 2 GM/50 ML (PMX) 50 ML IVPB SCH (23:18)
[2016-05-02] VITALS (11 sets, daily range): BP systolic 110–128; BP diastolic 59–77; PULSE 70–80; RESP 20
[2016-05-02] MEDS ORDERED: morphine 2 MG INJ IV ONE (00:30)
[2016-05-02] MEDS: OXYCODONE/ACETAMINOPHEN (5/325) TAB PO PRN ×3 (03:12→19:15)
[2016-05-02] MEDS: LEVOTHYROXINE 75 MCG TAB PO SCH (06:04)
[2016-05-02 07:31] LABS: ADD SCAN DIFF NO
[2016-05-02 07:42] LABS: BASOPHIL # 0.1 10^3/ul (0.0-0.1); BASOPHILS % 0.5 % (0.0-2.0); EOSINOPHILS # 0.1 10^3/ul (0.0-0.5); EOSINOPHILS % 0.6 % (0.0-7.0); HEMATOCRIT 42.8 % (42.0-52.0); LYMPHOCYTES # 2.7 10^3/ul (0.8-2.9); LYMPHOCYTES % 15.2 % (15.0-51.0); MEAN CORPUSCULAR HEMOGLOBIN 30.4 pg (29.0-33.0); MEAN CORPUSCULAR HGB CONC 32.7 g/dl (32.0-37.0); MEAN CORPUSCULAR VOLUME 92.8 fl (82.0-101.0); MEAN PLATELET VOLUME 12.1 fl (7.4-10.4); MONOCYTE # 1.2 10^3/ul (0.3-0.9); NEUTROPHIL # 13.4 10^3/ul (1.6-7.5); NEUTROPHILS % 75.7 % (39.0-77.0); PLATELET COUNT 205 10^3/UL (140-415); RED BLOOD COUNT 4.61 10^6/ul (4.70-6.10); RED CELL DISTRIBUTION WIDTH 13.4 % (11.5-14.5); WHITE BLOOD COUNT 17.6 10^3/ul (4.8-10.8)
[2016-05-02 07:52] LABS: POTASSIUM 4.7 mmol/L (3.5-5.1)
[2016-05-02 07:55] LABS: CREATININE 1.18 mg/dl (0.61-1.24)
[2016-05-02 07:56] LABS: CALCIUM 8.8 mg/dl (8.4-10.2); MAGNESIUM 2.3 mg/dl (1.7-2.5); PHOSPHORUS 4.3 mg/dl (2.5-4.9)
[2016-05-02] MEDS: THIAMINE 100 MG TAB PO SCH (08:36)
[2016-05-02] MEDS: SPIRONOLACTONE 25 MG TAB PO SCH (08:36)
[2016-05-02] MEDS: ASCORBIC ACID 500 MG TAB PO SCH ×2 (08:37→21:09)
[2016-05-02] MEDS: ENOXAPARIN 40 MG/0.4 ML SYG SC SCH (08:41)
[2016-05-02] MEDS ORDERED: HYDROmorphONE 1 MG/ML SYG IV PRN (12:30)
[2016-05-02] MEDS ORDERED: FUROSEMIDE 40 MG TAB PO SCH (13:00)
--- NOTE | 2016-05-02 13:11 | RADRPT ---
Vent Rate: 63 bpm RR Interval: 0 msec GA Interval: 194 msec QRS Duration: 122 msec QT Interval: 464 msec QTC Interval: 474 msec P-R-T Mallory: 31 - 28 - 0 degrees Normal sinus rhythm Left ventricular hypertrophy with QRS widening and repolarization abnormality Diffuse T wave abnormalities Abnormal ECG Electronically Signed By: Avi Wells [id number]
[2016-05-02 14:02] LABS: ANA SCREEN NEGATIVE (NEGATIVE)
--- NOTE | 2016-05-02 15:45 | PN ---
Date/Time of Note Date/Time of Note DATE: 05/02/16 TIME: 15:39 Assessment/Plan VTE Prophylaxis VTE Prophylaxis Intervention: LMWH Lines/Catheters IV [facility] Type ([facility] Peripheral IV Urinary Cath still in place: No Assessment/Plan Assessment/Plan 1. Leukocytosis, no clear source of infection, check procalcitonin 2. Pain and discoloration on feet, r/o Jim disease 3. CHF, systolic, chronic, stable 4. Nonischemic cardiomyopathy 5. Hypertension, stable 6. Hypothyroidism, on synthroid 7. DVT prophylaxis: lovenox Subjective 24 Hr Interval Summary Free Text/Dictation pain on both feet. afebrile. no diarrhea Exam/Review of Systems Vital Signs Vitals Vital Signs Date Time Temp Pulse Resp B/P Pulse Ox O2 Delivery O2 Flow Rate FiO2 05/02/16 12:06 98.3 72 20 110/64 100 05/02/16 04:00 Room Air 04/30/16 08:00 2.0 Intake and Output 05/01/16 05/01/16 05/02/16 15:00 23:00 07:00 Intake Total 1000 ml 350 ml Output Total 1400 ml 1050 ml Balance -400 ml -700 ml Exam Constitutional: alert, obese, oriented, well developed Psych: nl mood/affect, no complaints Head: atraumatic, normocephalic Eyes: EOMI, PERRL, nl conjunctiva, nl lids ENMT: nl external ears & nose, nl lips & teeth Neck: non-tender, supple Respiratory: clear to auscultation, normal air movement, No congested cough, No crackles/rales, No diminished breath sounds, No intercostal retraction, No labored breathing, No other, No respirations, No tactile fremitus, No wheezing Cardiovascular: nl pulses, regular rate and rhythm, No S3, No S4, No bruits, No diastolic murmur, No edema, No gallop, No irregular rhythm, No jugular venous distention (JVD), No murmurs/extra sounds, No other, No rub, No systolic murmur Gastrointestinal: non-tender, soft, No ascites, No bowel sounds, No distended, No firm, No hepatomegaly, No mass , No nl liver, spleen, No other, No rebound or guarding, No splenomegaly, No surgical scars, No tender Musculoskeletal: nl extremities to inspection Extremities: normal pulses, other (both feet discolored) Neurological: DIRECTOR COUNCIL ON AGING II-XII intact, nl mental status, nl speech, nl strength Results Result Diagram: 05/02/1662205/02/16622 Results 24 hrs Laboratory Tests Test 05/02/16 06:23 White Blood Count 17.6 H Red Blood Count 4.61 L Hemoglobin 14.0 Hematocrit 42.8 Mean Corpuscular Volume 92.8 Mean Corpuscular Hemoglobin 30.4 Mean Corpuscular Hemoglobin Concent 32.7 Red Cell Distribution Width 13.4 Platelet Count 205 Mean Platelet Volume 12.1 H Neutrophils % 75.7 Lymphocytes % 15.2 Monocytes % 7.0 Eosinophils % 0.6 Basophils % 0.5 Nucleated Red Blood Cells % 0.0 Neutrophils # 13.4 H Lymphocytes # 2.7 Monocytes # 1.2 H Eosinophils # 0.1 Basophils # 0.1 Nucleated Red Blood Cells # 0.0 Sodium Level 134 L Potassium Level 4.7 Chloride Level 94 L Carbon Dioxide Level 33 H Anion Gap 12 Blood Urea Nitrogen 23 H Creatinine 1.18 Glucose Level 106 Calcium Level 8.8 Phosphorus Level 4.3 Magnesium Level 2.3 Troponin I 0.017 Medications Medications Current Medications Lorazepam (Ativan) 0.5 mg Q8H PRN PO ANXIETY; Start 04/30/16 at 03:00 Metoclopramide HCl (Reglan) 10 mg Q6H PRN IV NAUSEA AND/OR VOMITING Last administered on 04/30/16 18:20; Admin Dose 10 MG; Start 04/30/16 at 03:00 Acetaminophen (Tylenol Tab) 650 mg Q6H PRN PO PAIN LEVEL 1-3 OR FEVER; Start at 03:00 Oxycodone/ Acetaminophen (Percocet (5/ 325)) 1 tab Q6H PRN PO PAIN LEVEL 4-6; Start 04/30/16 at 03:00 Oxycodone/ Acetaminophen (Percocet (5/ 325)) 2 tab Q6H PRN PO PAIN LEVEL 7-10 Last administered on 05/02/16 09:02; Admin Dose 2 TAB; Start 04/30/16 at 03:00 Enoxaparin Sodium (Lovenox) 40 mg DAILY SC Last administered on 05/02/16 08:41 ; Admin Dose 40 MG; Start 04/30/16 at 09:00 Carvedilol (Coreg) 25 mg BID PO Last administered on 05/02/16 08:37; Admin Dose 25 MG; Start 04/30/16 at 09:00 Nitroglycerin (Nitroglycerin (Sl Tab) 0.4 Mg) 1 tab PRN PRN SL CHEST PAIN; Start 04/30/16 at 03:00 Spironolactone (Aldactone) 25 mg DAILY PO Last administered on 05/02/16 08:36 ; Admin Dose 25 MG; Start 04/30/16 at 09:00 Senna/Docusate Sodium (Senokot-S) 2 tab HS PRN PO CONSTIPATION; Start 04/30/16 at 13:30 Ascorbic Acid (Vitamin C) 500 mg BID PO Last administered on 05/02/16 08:37; Admin Dose 500 MG; Start 04/30/16 at 13:30 Guaifenesin/ Dextromethorphan (Robitussin Dm Liquid Cup) 10 ml Q4H PRN PO COUGH Last administered on 04/30/16 14:02; Admin Dose 10 ML; Start 04/30/16 at 13:30 Thiamine HCl 100 mg 100 mg DAILY PO Last administered on 05/02/16 08:36; Admin Dose 100 MG; Start 05/01/16 at 09:00 Ceftriaxone Sodium (Rocephin) 50 ml @ 100 mls/hr Q24H IVPB Last administered on 05/01/16 23:18; Admin Dose 100 MLS/HR; Start 04/30/16 at 23:00 Levothyroxine Sodium (Synthroid) 75 mcg DAILY@06 PO Last administered on 06:04; Admin Dose 75 MCG; Start 05/02/16 at 06:00 Benazepril HCl (Lotensin) 10 mg DAILY PO ; Start 05/03/16 at 09:00 Hydromorphone HCl (Dilaudid) 1 mg Q3 PRN IV PAIN Last administered on 12:13; Admin Dose 1 MG; Start 05/02/16 at 12:30 HUMZA MEDINA MD May 02, 2016 15:45
--- NOTE | 2016-05-02 17:26 | RADRPT ---
PROCEDURE: MRI OF THE RIGHT FOOT. CLINICAL INDICATION: Right foot pain. TECHNIQUE: Multiple MR pulse sequences in multiple planes were obtained. Images were interpreted on the high-resolution PACS system. COMPARISON: None available FINDINGS: First ray: There is no fracture or stress reaction. The sesamoids and capsular structures are inta ct. Mild chondral fissuring is noted at the metatarsal head. Second ray: There is chondral fissuring and subchondral edema noted at the second metatarsal base a nd to a lesser extent at the middle cuneiform related to focal arthrosis or sequelae of prior trauma . Third through fifth rays: There is no fracture or stress reaction. The plantar plates is intact. No evidence for an osteochondral defect. Midfoot: There is a mild amount of edema at the proximal plantar musculature seen on the coronal se quence image 6 which is nonspecific. Nonspecific dorsal subcutaneous edema is also noted at the mid foot. IMPRESSION: 1. Moderate, nonspecific edema at the plantar musculature and to a lesser extent at the dorsal musc ulature and subcutaneous soft tissues. 2. Focal chondral fissuring and subchondral edema at the second tarsometatarsal joint related to fo myles arthrosis or sequelae of prior trauma. 3. No evidence for osteomyelitis. RPTAT: AA .Sonido Turpin MD, MD Date Time Electronically viewed and signed by .Sonido Turpin MD, MD on 05/02/2016 17:26 .d/
--- NOTE | 2016-05-02 20:01 | CONS ---
Date/Time of Note Date/Time of Note DATE: 05/02/16 TIME: 19:51 Assessment/Plan Assessment/Plan Problems: (1) Acute gout (2) Right ankle pain (3) Left ankle pain Additional Assessment/Plan Recommendation is rheumatology consultation to rule out other arthritides. Patient will require reduction of his uric acid. I will order indomethacin 50 mg 3 times daily. Patient will be followed in-house. Thank you very much for your kind consultation. Thank you again for involving me in the care of this patient. If you have any questions regarding this case, please feel free to contact me at pager: or reach me at mobile: [phone]. Consultation Date/Type/Reason Admit Date/Time 04/30/16 0034 Date of Consultation: May 02, 2016 Type of Consultation: Foot and ankle surgery Reason for Consultation Bilateral ankle pain Hx of Present Illness Patient was admitted to the hospital on April 30, 2016 for shortness of breath. I was consulted evaluation of pain in both ankles. Patient reports that about a week ago on he started to have progressively worsening pain in his left ankle. He says that he came to the emergency room at [facility] and was evaluated and sent home that same day. He says that the pain got worse in his right foot and ankle got very swollen to the point where he was unable to even stand on his feet. He says that even today he is not able to stand or walk because of the intense pain. Patient reports previous episode of this problem on the left foot and ankle but not to this level. Patient denies previous diagnosis of gout and denies previous treatments for this condition. He has multiple medical problems including congestive heart failure with diastolic dysfunction, acute on chronic, hypertension, pulmonary hypertension, history of CHF, cardiomyopathy with low ejection fraction of 20% from an echocardiogram on August 18, 2014. Patient denies history of diabetes mellitus and reports no history of HIV disease. Patient denies hep C and denies other medical problems. Patient denies smoking cigarettes or doing illegal drugs. He says that he used to do methamphetamines and he quit about 6 years ago. Denies any trauma to his lower extremities. Psychological: nl mood/affect, no complaints Past Medical History As per history of present illness. Past Surgical History As per history of present illness. Social History As per history of present illness. 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 Edema of bilateral ankles noted with the right side worse than the left. Mild erythema present on the medial right ankle. The area is tender according patient to the lightest touch and movement. Right side seems to be worse than the left. There is no active open wound. There is mild crepitus on range of motion of the right ankle with significant amount of tenderness reported by the patient. Labs reviewed. Imaging reviewed. MRI of the right foot reveals moderate nonspecific edema at the plantar musculature to a lesser extent at the dorsal musculature and subcutaneous soft tissues. There is also focal chondral fissuring and subchondral edema at the second metatarsal joint related to focal arthritis or sequelae of prior trauma. There is no evidence of osteomyelitis and no drainable abscess. X-rays show mild soft tissue swelling of both feet with no fracture or dislocation. There is no foreign body present. Uric acid level drawn on May 01, 2016 is 10. Today's white blood count is 17.6. Results Result Diagram: 05/02/16 0623 05/02/16 0623 Results 24 hrs Laboratory Tests Test 05/02/16 06:23 White Blood Count 17.6 H Red Blood Count 4.61 L Hemoglobin 14.0 Hematocrit 42.8 Mean Corpuscular Volume 92.8 Mean Corpuscular Hemoglobin 30.4 Mean Corpuscular Hemoglobin Concent 32.7 Red Cell Distribution Width 13.4 Platelet Count 205 Mean Platelet Volume 12.1 H Neutrophils % 75.7 Lymphocytes % 15.2 Monocytes % 7.0 Eosinophils % 0.6 Basophils % 0.5 Nucleated Red Blood Cells % 0.0 Neutrophils # 13.4 H Lymphocytes # 2.7 Monocytes # 1.2 H Eosinophils # 0.1 Basophils # 0.1 Nucleated Red Blood Cells # 0.0 Sodium Level 134 L Potassium Level 4.7 Chloride Level 94 L Carbon Dioxide Level 33 H Anion Gap 12 Blood Urea Nitrogen 23 H Creatinine 1.18 Glucose Level 106 Calcium Level 8.8 Phosphorus Level 4.3 Magnesium Level 2.3 Troponin I 0.017 Medications Medications Current Medications Lorazepam (Ativan) 0.5 mg Q8H PRN PO ANXIETY; Start 04/30/16 at 03:00 Metoclopramide HCl (Reglan) 10 mg Q6H PRN IV NAUSEA AND/OR VOMITING Last administered on 04/30/16 18:20; Admin Dose 10 MG; Start 04/30/16 at 03:00 Acetaminophen (Tylenol Tab) 650 mg Q6H PRN PO PAIN LEVEL 1-3 OR FEVER; Start at 03:00 Oxycodone/ Acetaminophen (Percocet (5/ 325)) 1 tab Q6H PRN PO PAIN LEVEL 4-6; Start 04/30/16 at 03:00 Oxycodone/ Acetaminophen (Percocet (5/ 325)) 2 tab Q6H PRN PO PAIN LEVEL 7-10 Last administered on 05/02/16 19:15; Admin Dose 2 TAB; Start 04/30/16 at 03:00 Enoxaparin Sodium (Lovenox) 40 mg DAILY SC Last administered on 05/02/16 08:41 ; Admin Dose 40 MG; Start 04/30/16 at 09:00 Carvedilol (Coreg) 25 mg BID PO Last administered on 05/02/16 08:37; Admin Dose 25 MG; Start 04/30/16 at 09:00 Nitroglycerin (Nitroglycerin (Sl Tab) 0.4 Mg) 1 tab PRN PRN SL CHEST PAIN; Start 04/30/16 at 03:00 Spironolactone (Aldactone) 25 mg DAILY PO Last administered on 05/02/16 08:36 ; Admin Dose 25 MG; Start 04/30/16 at 09:00 Senna/Docusate Sodium (Senokot-S) 2 tab HS PRN PO CONSTIPATION; Start 04/30/16 at 13:30 Ascorbic Acid (Vitamin C) 500 mg BID PO Last administered on 05/02/16 08:37; Admin Dose 500 MG; Start 04/30/16 at 13:30 Guaifenesin/ Dextromethorphan (Robitussin Dm Liquid Cup) 10 ml Q4H PRN PO COUGH Last administered on 04/30/16 14:02; Admin Dose 10 ML; Start 04/30/16 at 13:30 Thiamine HCl 100 mg 100 mg DAILY PO Last administered on 05/02/16 08:36; Admin Dose 100 MG; Start 05/01/16 at 09:00 Ceftriaxone Sodium (Rocephin) 50 ml @ 100 mls/hr Q24H IVPB Last administered on 05/01/16 23:18; Admin Dose 100 MLS/HR; Start 04/30/16 at 23:00 Levothyroxine Sodium (Synthroid) 75 mcg DAILY@06 PO Last administered on 06:04; Admin Dose 75 MCG; Start 05/02/16 at 06:00 Benazepril HCl (Lotensin) 10 mg DAILY PO ; Start 05/03/16 at 09:00 Morphine Sulfate (morphine) 2 mg Q3H PRN IV PAIN LEVEL 4-7; Start 05/02/16 at 17:30 MELANI DANIELS DPM May 02, 2016 20:01
[2016-05-02] MEDS: morphine 2 MG INJ IV PRN (21:10)
[2016-05-02] MEDS: CEFTRIAXONE 2 GM/50 ML (PMX) 50 ML IVPB SCH (23:56)
[2016-05-03] VITALS (10 sets, daily range): BP systolic 105–153; BP diastolic 62–82; PULSE 68–85; RESP 18–20
[2016-05-03] MEDS: morphine 2 MG INJ IV PRN (01:16)
[2016-05-03] MEDS: OXYCODONE/ACETAMINOPHEN (5/325) TAB PO PRN ×2 (03:05→11:32)
[2016-05-03] MEDS: LEVOTHYROXINE 75 MCG TAB PO SCH (05:43)
[2016-05-03] MEDS ORDERED: BENAZEPRIL 10 MG TAB PO SCH (09:00)
[2016-05-03] MEDS: THIAMINE 100 MG TAB PO SCH (09:19)
[2016-05-03] MEDS: SPIRONOLACTONE 25 MG TAB PO SCH (09:19)
[2016-05-03] MEDS: ASCORBIC ACID 500 MG TAB PO SCH (09:20)
[2016-05-03] MEDS: ENOXAPARIN 40 MG/0.4 ML SYG SC SCH (09:34)
[2016-05-03] MEDS ORDERED: Oxycodone/Acetamin (5/325) PO (13:39)
[2016-05-03] MEDS ORDERED: IND50 PO (13:44)
[2016-05-03] MEDS ORDERED: PANT40TA3 PO (13:44)
--- NOTE | 2016-05-03 13:57 | DS ---
Date/Time of Note Date/Time of Note DATE: 05/03/16 TIME: 13:45 Discharge Summary Admission/Discharge Info Admit Date/Time Apr 30, 2016 at 00:34 1. Acute gout attack with gouty arthritis and leukocytosis, on indocin/protonix , follow up with PCP for allopurinol after arthritis improved 2. CHF, systolic, chronic, stable 3. Nonischemic cardiomyopathy 4. Hypertension, stable 5. Hypothyroidism, on synthroid Discharge Date/Time Final Diagnosis 1. Acute gouty attack with arthritis on feet and leukocytosis, on indocin/ percocet, follow up with PCP 2. CHF, systolic, chronic, stable 3. Nonischemic cardiomyopathy 4. Hypertension, stable 5. Hypothyroidism, on synthroid Patient Condition: Stable Procedures [place] [id number] Radiology Main Line: [phone] DIAGNOSTIC IMAGING REPORT Patient: STACIE ARMSTRONG : 1980 Age: 36 Sex: M MR #: [id number] DOS: 05/02/16 0000 Ordering MD: NIVIA HELMS MD Location: [facility] Room/Bed: [facility] PROCEDURE: MRI OF THE RIGHT FOOT. CLINICAL INDICATION: Right foot pain. TECHNIQUE: Multiple MR pulse sequences in multiple planes were obtained. Images were interpreted on the high-resolution PACS system. COMPARISON: None available FINDINGS: First ray: There is no fracture or stress reaction. The sesamoids and capsular structures are intact. Mild chondral fissuring is noted at the metatarsal head. Second ray: There is chondral fissuring and subchondral edema noted at the second metatarsal base and to a lesser extent at the middle cuneiform related to focal arthrosis or sequelae of prior trauma. Third through fifth rays: There is no fracture or stress reaction. The plantar plates is intact. No evidence for an osteochondral defect. Midfoot: There is a mild amount of edema at the proximal plantar musculature seen on the coronal sequence image 6 which is nonspecific. Nonspecific dorsal subcutaneous edema is also noted at the midfoot. IMPRESSION: 1. Moderate, nonspecific edema at the plantar musculature and to a lesser extent at the dorsal musculature and subcutaneous soft tissues. 2. Focal chondral fissuring and subchondral edema at the second tarsometatarsal joint related to focal arthrosis or sequelae of prior trauma. 3. No evidence for osteomyelitis. 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 Shortness of breath soon resolved with treatment but the pain on both feet especially on right foot, along with leukocytosis with WBC up to 18,100. For the pain on feet, MRI indicates soft tissue edema. Uric acid level is 10. Patient is diagnosed with acute gout and started on indocin per strawberry grower on . The redness and swelling is significantly improved today. Patient is instructed to follow up with PCP to start allopurinol when acute attack resolved. For leukocytosis, there is no obvious source of infection. It is considered acute gouty attack related. Home Meds Active Scripts Pantoprazole* (Protonix*) 40 Mg Tablet.dr, 40 MG PO DAILY, #10 TAB Prov:HUMZA MEDINA MD 05/03/16 Indomethacin* (Indocin*) 50 Mg Cap, 50 MG PO TID, #30 CAP Prov:HUMZA MEDINA MD 05/03/16 [Oxycodone/Acetamin (5/325)] 1 TAB TAB No Conflict Check, 1 TAB PO Q6H Y for PAIN LEVEL 4-6, #30 Prov:HUMZA MEDINA MD 05/03/16 Furosemide* (Furosemide*) 40 Mg Tablet, 40 MG PO BID for 30 Days, TAB Prov:LISA STONE NP 08/19/14 Spironolactone* (Aldactone*) 25 Mg Tab, 25 MG PO DAILY, #30 Prov:LISA STONE NP 08/19/14 Reported Medications Nitroglycerin* (Nitrostat*) 0.4 Mg Tab.subl, 0.4 MG SL Q5MIN Y for CHEST PAIN, BOTTLE 04/29/16 Benazepril Hcl* (Benazepril Hcl*) 10 Mg Tablet, 10 MG PO DAILY, #30 TAB 04/29/16 Carvedilol* (Carvedilol*) 25 Mg Tablet, 25 MG PO BID, TAB 08/17/14 Discontinued Reported Medications Benazepril Hcl* (Benazepril Hcl*) 20 Mg Tablet, 20 MG PO DAILY, TAB 08/17/14 Discontinued Scripts Fish Oil* (Fish Oil*) 1,000 Mg Cap, 1000 MG PO BID for 30 Days, CAP Prov:LISA STONE NP 08/19/14 Aspirin (Aspirin) 81 Mg Chew, 81 MG PO DAILY for 30 Days Prov:LISA STONE NP 08/19/14 Follow-up Plan PCP in 1-2 weeks HUMZA MEDINA MD May 03, 2016 13:55
[2016-05-03] MEDS ORDERED: INDOMETHACIN 50 MG PO SCH (15:00)
== END 2016-05-03 18:40 | disposition home or self-care (01) | DRG 292 ==
LOC: E/R 17:34 → MS4 04-30 00:34
PROVIDERS: ADMIT Family Medicine; ATTEND Family Medicine
DX: I50.23 Acute on chronic systolic (congestive) heart failure (principal); I42.9 Cardiomyopathy, unspecified; I27.2 Other secondary pulmonary hypertension; M10.9 Gout, unspecified; I10 Essential (primary) hypertension; E03.9 Hypothyroidism, unspecified; M79.672 Pain in left foot; M79.671 Pain in right foot; E66.9 Obesity, unspecified; R73.03 Prediabetes; E78.5 Hyperlipidemia, unspecified; Z68.39 Body mass index [BMI] 39.0-39.9, adult
CPT/HCPCS: 71010; 73718; 80048; 80053; 80306; 80307; 81001; 81003; 82306; 82550; 82553; 82962; 83036; 83605; 83690; 83735; 83880; 84100; 84443; 84484; 84560; 85025; 85610; 85730; 86038; 86430; 87040; 87086; 87400; 90686; 93005; 93970; 96374; J1940; J1170; J1650; J2270; J2405; J2765; J7040

== ENCOUNTER 2016-06-08 21:40 | Emergency (ER) | payer OTHER ==
[~2016-06-08] VITALS: Ht 182.9 cm; Wt 129.1 kg
[~2016-06-08 21:40] MED LIST changes: -ASPI81TA3 PO; +BENA10TA48 PO; -BENA20TA48 PO; +IND50 PO; +NIT4 SL; -OMEG-135 PO; +Oxycodone/Acetamin (5/325) PO; +PANT40TA3 PO
[2016-06-08 21:43] VITALS: Ht 182.9 cm; Wt 129.1 kg
[2016-06-09] MEDS ORDERED: ALBUTEROL 0.083% (NEB) 2.5 MG/3 ML AMP HHN STA (01:37)
--- NOTE | 2016-06-09 01:45 | ERD ---
ER Documentation Chief Complaint Date/Time DATE: 06/09/16 TIME: 01:40 Chief Complaint cough x 1 week HPI This pleasant 36-year-old male patient presents to emergency department today with complaint of shortness of breath. Patient reports that he has been coughing for the last 4 weeks, symptoms have worsened over the last week with runny nose, nasal congestion, and not being able to breathe at night when he lays flat. Patient reports he has been using [id number] NyQuil with little relief of symptoms, reports his cough is not protective, patient states he feels short of breath, denies history of asthma. Patient reports history of CHF takes 40 mg of Lasix, carvedilol 25 mg, and Benzapril 10 mg. Patient is not on potassium supplement, does not routinely use inhalers. Denies smoking or illegal drug use. Patient reports past methamphetamine use. ROS All systems reviewed and are negative except as per history of present illness. Medications Home Meds Active Scripts Pantoprazole* (Protonix*) 40 Mg Tablet.dr, 40 MG PO DAILY, #10 TAB Prov:HUMZA MEDINA MD 05/03/16 Indomethacin* (Indocin*) 50 Mg Cap, 50 MG PO TID, #30 CAP Prov:HUMZA MEDINA MD 05/03/16 [Oxycodone/Acetamin (5/325)] 1 TAB TAB No Conflict Check, 1 TAB PO Q6H Y for PAIN LEVEL 4-6, #30 Prov:HUMZA MEDINA MD 05/03/16 Furosemide* (Furosemide*) 40 Mg Tablet, 40 MG PO BID for 30 Days, TAB Prov:LISA STONE EDI DEVELOPER 08/19/14 Spironolactone* (Aldactone*) 25 Mg Tab, 25 MG PO DAILY, #30 Prov:LISA STONE EDI DEVELOPER 08/19/14 Reported Medications Nitroglycerin* (Nitrostat*) 0.4 Mg Tab.subl, 0.4 MG SL Q5MIN Y for CHEST PAIN, BOTTLE 04/29/16 Benazepril Hcl* (Benazepril Hcl*) 10 Mg Tablet, 10 MG PO DAILY, #30 TAB 04/29/16 Carvedilol* (Carvedilol*) 25 Mg Tablet, 25 MG PO BID, TAB 08/17/14 Allergies Allergies: Coded Allergies: No Known Allergy (Unverified , 3/24/17) PMhx/Soc History of Surgery: Yes (Left knee SX) Anesthesia Reaction: No Hx Neurological Disorder: No Hx Respiratory Disorders: Yes (SOB) Hx Cardiac Disorders: Yes (HTN, CHF, chest pain, cardiomyopathy) Hx Psychiatric Problems: No Hx Miscellaneous Medical Probl: No Hx Alcohol Use: Yes (Periodic binge drinking) Hx Substance Use: No (Methamphetamines past) Hx Tobacco Use: No Smoking Status: Unknown if ever smoked Physical Exam Vitals Vital Signs Date Time Temp Pulse Resp B/P Pulse Ox O2 Delivery O2 Flow Rate FiO2 06/09/16 01:57 100 20 98 21 06/08/16 21:43 98.8 99 20 174/98 97 Vitals stable, triage notes reviewed Physical Exam Const: Patient appears dyspneic, satting 97% on room air without edema or evidence of acute heart failure, patient in no acute distress Head: Atraumatic Eyes: Normal Conjunctiva, PERRLA, EOMI ENT: Normal External Ears, Nose and Mouth. Mucous membranes moist Neck: No JVD or bruit auscultated Resp: Poor air movement throughout anterior and posterior lobes, wheezing with forced expiration, Cardio: Regular rate and rhythm, no murmurs Abd: Skin: Back: Ext: Neur: Awake and alert Psych: Normal Mood and Affect Result Diagram: 06/09/166 06/09/16 0156 Results 24 hrs Laboratory Tests Test 06/09/16 01:56 White Blood Count 13.310^3/ul Red Blood Count 4.3210^6/ul Hemoglobin 12.8g/dl Hematocrit 38.4% Mean Corpuscular Volume 88.9fl Mean Corpuscular Hemoglobin 29.6pg Mean Corpuscular Hemoglobin Concent 33.3g/dl Red Cell Distribution Width 13.6% Platelet Count 54341^3/UL Mean Platelet Volume 11.3fl Neutrophils % 69.8% Lymphocytes % 17.7% Monocytes % 8.1% Eosinophils % 3.2% Basophils % 0.5% Nucleated Red Blood Cells % 0.0/100WBC Neutrophils # 9.310^3/ul Lymphocytes # 2.410^3/ul Monocytes # 1.110^3/ul Eosinophils # 0.410^3/ul Basophils # 0.110^3/ul Nucleated Red Blood Cells # 0.010^3/ul Sodium Level 143mmol/L Potassium Level 3.9mmol/L Chloride Level 103mmol/L Carbon Dioxide Level 27mmol/L Anion Gap 17 Blood Urea Nitrogen 15mg/dl Creatinine 1.02mg/dl Glucose Level 119mg/dl Calcium Level 8.8mg/dl Current Medications Medications (Trade) Dose Ordered Sig/Daphney Route PRN Reason Start Time Stop Time Status Last Admin Dose Admin Albuterol (Proventil 0.083% (Neb)) 5 mg ONCE STAT HHN 06/09/16 01:37 06/09/16 01:40 DC 06/09/16 01:56 Ipratropium [employer] (Atrovent 0.02% (Neb)) 0.5 mg ONCE ONCE INH 06/09/16 02:00 06/09/16 02:01 DC 06/09/16 01:56 Procedures/MDM PROCEDURE: XR Chest. CLINICAL INDICATION: Shortness of breath. TECHNIQUE: Single frontal chest x-ray. COMPARISON: None. FINDINGS: Heart is mildly enlarged.. Pulmonary vessels are top normal caliber without definite CHF.. No focal infiltrate is seen. There is no pleural effusion. There is no pneumothorax. There are old fractures of the right seventh and eighth posterior lateral rib. IMPRESSION: Mild cardiomegaly. Pulmonary vessels top normal caliber without definite CHF. Old right rib fractures. RPTAT: HMVK .Avi Frias MD, MD Date Time Electronically viewed and signed by .Avi Frias MD, MD on 06/09/2016 02:51 This pleasant 36-year-old male patient presents to emergency department today cough 4 weeks, shortness of breath, patient reports symptoms worse while sleeping. Patient has complex medical history including congestive heart failure and hypertension. Differential diagnosis includes but not limited to exacerbation of CHF, pneumonia, bronchitis, sleep apnea. Physical exam does not support an exacerbation of CHF with no pitting edema, no JVD, no crackles at lung bases. Chest x-ray was obtained regardless; impression mild cardiomegaly pulmonary vessels top normal caliber without definite CHF. Old right rib fractures.. WBCs elevated suggestive of infectious process. Patient received albuterol hand-held nebulized treatment. With improvement of cough will be discharged with azithromycin, and albuterol MDI. Continue all routine medication as prescribed. I feel the patient is stable for discharge and outpatient management with primary care physician, a sleep study is highly recommended. I have discussed results, examination findings, the treatment plan with the patient and family present prior to discharge. Indications for emergent reevaluation, side effects of medication were also discussed. All questions were answered. Patient verbalizes understanding and agrees with plan of care. Departure Diagnosis: Primary Impression: Bronchitis Condition: Good Patient Instructions: Acute Bronchitis Additional Instructions: Thank you for for coming to [facility] for your care today. Please ask your nurse or provider if you have questions about your care today and do not leave until all your questions have been answered. Please use any medications given as directed and follow-up with your doctor (or the doctor you were referred to) in the next 2-3 days. If you do not have a primary care doctor you may follow up at the [facility] [place] (listed below). You may also use motrin and tylenol as needed for fever and/or pain unless instructed otherwise by your provider or nurse. Indications for more urgent follow-up have been discussed, but you may return to the Emergency Department at ANY time for any worrisome or worsening symptoms. If you have abdominal pain, please know that no test or exam you received is perfect and you should follow up within 8 hours for continued pain. If you had any imaging studies today, such as an X-Ray or CT Scan, these studies will be reviewed later by a radiologist. You will be called if there are important findings that were not identified today, so make sure the contact information you provided at registration is correct. If you received any narcotic pain control medicine today, such as Vicodin, Morphine or Dilaudid, your coordination and judgment may be affected for a number of hours. Please do not drive or operate heavy machinery, and you may want someone to assist you at home. If you were given a prescription for narcotic medication, be aware that it is very addictive- use sparingly and only if necessary. MICAH STEPHENSON June 09, 2016 01:45
[2016-06-09] MEDS ORDERED: IPRATROPIUM (NEB) 0.5 MG/2.5 ML AMP INH ONE (02:00)
[2016-06-09 02:10] LABS: ADD SCAN DIFF NO
[2016-06-09 02:16] LABS: BASOPHIL # 0.1 10^3/ul (0.0-0.1); BASOPHILS % 0.5 % (0.0-2.0); EOSINOPHILS # 0.4 10^3/ul (0.0-0.5); EOSINOPHILS % 3.2 % (0.0-7.0); HEMATOCRIT 38.4 % (42.0-52.0); HEMOGLOBIN 12.8 g/dl (14.0-18.0); LYMPHOCYTES # 2.4 10^3/ul (0.8-2.9); LYMPHOCYTES % 17.7 % (15.0-51.0); MEAN CORPUSCULAR HEMOGLOBIN 29.6 pg (29.0-33.0); MEAN CORPUSCULAR HGB CONC 33.3 g/dl (32.0-37.0); MEAN CORPUSCULAR VOLUME 88.9 fl (82.0-101.0); MEAN PLATELET VOLUME 11.3 fl (7.4-10.4); MONOCYTE # 1.1 10^3/ul (0.3-0.9); MONOCYTES % 8.1 % (0.0-11.0); NEUTROPHIL # 9.3 10^3/ul (1.6-7.5); NEUTROPHILS % 69.8 % (39.0-77.0); PLATELET COUNT 243 10^3/UL (140-415); RED BLOOD COUNT 4.32 10^6/ul (4.70-6.10); RED CELL DISTRIBUTION WIDTH 13.6 % (11.5-14.5); WHITE BLOOD COUNT 13.3 10^3/ul (4.8-10.8)
[2016-06-09 02:36] LABS: POTASSIUM 3.9 mmol/L (3.5-5.1)
[2016-06-09 02:39] LABS: CREATININE 1.02 mg/dl (0.61-1.24)
[2016-06-09 02:40] LABS: CALCIUM 8.8 mg/dl (8.4-10.2)
--- NOTE | 2016-06-09 02:51 | RADRPT ---
PROCEDURE: XR Chest. CLINICAL INDICATION: Shortness of breath. TECHNIQUE: Single frontal chest x-ray. COMPARISON: None. FINDINGS: Heart is mildly enlarged.. Pulmonary vessels are top normal caliber without definite CHF.. No focal infiltrate is seen. There is no pleural effusion. There is no pneumothorax. There are old fractu res of the right seventh and eighth posterior lateral rib. IMPRESSION: Mild cardiomegaly. Pulmonary vessels top normal caliber without definite CHF. Old right rib frac tures. RPTAT: HMVK .Avi Frias MD, MD Date Time Electronically viewed and signed by .Avi Frias MD, MD on 06/09/2016 02:51 .K/
[2016-06-09] MEDS ORDERED: ALBU18HF INHALATION (03:16)
[2016-06-09] MEDS ORDERED: AZIT250T94 PO (03:16)
[2016-06-09] MEDS ORDERED: INHA1SPA53 MC (03:17)
[2016-06-09] MEDS ORDERED: ACETAMINOPHEN 325 MG TAB PO ONE (03:30)
[2016-06-09 03:40] VITALS: BP 190/102; PULSE 95; RESP 20
== END 2016-06-09 03:54 | disposition home or self-care (01) ==
LOC: FTE 21:40
DX: J20.9 Acute bronchitis, unspecified (principal); I10 Essential (primary) hypertension; I50.9 Heart failure, unspecified
CPT/HCPCS: 36415; 71010; 80048; 85025; 94640; Z7502; Z7610